=== PATIENT | female | born 1970 | race Caucasian/White ===

== ENCOUNTER 2019-08-29 11:47 | Emergency (ER) | payer BC, SELFPAY ==
--- NOTE | ~2019-08-29 | CT_ITS ---
EXAMINATION: CT abdomen pelvis w con INDICATION: Left lower quadrant pain TECHNIQUE: Computed tomographic images of the abdomen and pelvis were obtained after the administrati on of 100 cc of Omnipaque 350 intravenous contrast. The dose-length product (DLP) was 510.17 mGy-cm. Automated exposure control and iterative reconstruction technique were employed. COMPARISON: 09/09/2017 FINDINGS: Minimal dependent atelectasis is present in the lung bases. The heart size is normal. The l iver is diffusely low in attenuation when compared with the spleen, consistent with hepatic steatosis . The spleen, pancreas, gallbladder, and adrenal glands are normal. The right kidney is normal. Again seen is a stable 6 mm hypoattenuating lesion of the left kidney upper pole, likely a cyst. A retroao rtic left renal vein is noted. There is colonic diverticulosis. Wall thickening is seen in the mid si gmoid colon with surrounding edematous stranding of the perisigmoid fat. No rim-enhancing fluid colle ction or free gas are identified. No pathologically enlarged abdominal or pelvic lymph nodes are iden tified. There are no dilated loops of bowel. The appendix is normal. A tiny fat-containing umbilical hernia is noted. IMPRESSION: 1. Acute, uncomplicated sigmoid diverticulitis. Reviewed, dictated and finalized at location A. PATIONAL THERAPY CO DIRECTOR
[2019-08-29 12:50] VITALS: BP 136/76; PULSE 86; RESP 18; TEMP 36.9; O2SAT 100
[2019-08-29 13:15] LABS: Alanine Aminotransferase 43 U/L (4-35); Albumin Level 4.3 g/dL (3.5-5.1); Alkaline Phosphatase 69 U/L (38-126); Aspartate Amino Transferase 28 U/L (14-36); Bilirubin,Total 0.7 mg/dL (0.2-1.3); Blood Urea Nitrogen 8 mg/dL (7-17); Calcium 9.5 mg/dL (8.4-10.2); Carbon Dioxide 26 mmol/L (22-30); Chloride 99 mmol/L (98-107); Estimated CRCL calculation 86 ml/min; Estimated Glomerular Filt Rate > 60; Glucose 121 mg/dL (65-105); Lipase 27 U/L (23-300); Potassium 3.7 mmol/L (3.4-5.0); Sodium 139 mmol/L (137-145)
[2019-08-29 13:27] LABS: Add Urine Microscopic? YES; Appearance Urine Clear (Clear); Bacteria Urine Trace /hpf; Bilirubin Urine Negative (Negative); Blood Urine Negative (Negative); Color Urine Yellow (Yellow); Glucose Urine UA Negative (Negative); Ketones Urine Trace mg/dL (Negative); Leukocyte Esterase Ur Negative LEU/UL (Negative); Mucus Urine Heavy /lpf; Nitrate Urine Negative (Negative); Protein Urine 1+ mg/dL (Negative); Specific Grav Ur 1.023 (1.001-1.035); Squamous Epithelial Cell Urine Many /hpf (Few); Urobilinogen Urine Negative mg/dL (<2.0)
--- NOTE | 2019-08-29 15:43 | ED.ABDPAIN ---
HPI - Abdominal Pain General Chief Complaint: Abdominal Pain Stated Complaint: Lower abd pain Time Seen by Provider: 08/29/19 15:40 Source: patient Mode of arrival: ambulatory Limitations: no limitations History of Present Illness HPI narrative: A 49 y/o female presents to the ED with c/o intermittent LLQ ABD pain that started yesterday after a bowel movement. Pt states she has a Hx of Diverticulitis and notes this feels similar to episodes she's had in the past. She states she feels nauseous and constipated, but denies vomiting, diarrhea, fever, or dysuria. Pt rates her pain as an 8 out of 10 at this time and notes taking Hydrocodone last night at 1030 PM which helped to alleviate the pain, but she ran out of pain medicine. She states that she hasn't been able to eat anything since yesterday morning. Pt reports a PSHx of a caesarean section and reports NKA. MD elicited complaint: abdominal pain Pertinent past history: diverticulitis Onset (ago): day(s) (1) Pain Consistency: intermittent Location: LLQ Severity: similar to previous episodes Pain scale (0-10): 8 Relieving factors: medication (Hydrocodone) Context: confirms history of similar episodes Associated symptoms: nausea and constipation Treatments prior to arrival: other (Hydrocodone) Related Data Allergies Allergy/AdvReac Type Severity Reaction Status Date / Time No Known Allergies Allergy Verified 08/29/19 12:52 Review of Systems Review of Systems: All systems reviewed & are unremarkable except as noted in HPI and below Constitutional: Constitutional: Denies fever(s) Gastrointestinal: Gastrointestinal: Reports abdominal pain (LLQ), Reports constipation, Denies diarrhea, Reports nausea and Denies vomiting Genitourinary: Genitourinary: Denies dysuria PMFSH Past Medical History Medical History (Updated 08/29/19 @ 17:26 by J Luis Malik MD) Diverticulitis Surgical History Surgical History (Updated 08/29/19 @ 16:25 by BRAYAN Prado) History of section Social History Social History (Updated 08/29/19 @ 16:26 by BRAYAN Prado) Smoking status: Unknown if ever smoked Gender identity (if verbalized by the patient): Female Exam Const: General: healthy appearing and no acute distress Nutritional Appearance: well nourished HENMT: Mouth: Yes lip normal and Yes moist mucous membranes Eyes: Conjunctivae: conjunctivae normal Pupils: Equal, round and reactive pupils present Resp: Effort & Inspection: normal respiratory effort Auscultation: clear to auscultation bilaterally Cardio: Rate: regular rate Rhythm: regular rhythm Heart sounds: no murmurs GI: GI Palp: Yes Soft to palpation and Yes Tenderness to palpation present (GI) (LLQ) Auscultation: normal bowel sounds Back/Spine/Pelvis: Other: Full ROM Skin: General skin exam: normal color, dry skin and other (warm) Neuro: General: patient oriented x3 (alert) Speech: normal speech Extrem: General: full ROM Psych: Mental Status: mental status grossly normal Affect: normal affect Course Vital Signs Vital signs: Vital Signs Temperature 36.9 C 08/29/19 12:50 Pulse Rate 86 08/29/19 12:50 Respiratory Rate 18 08/29/19 12:50 Blood Pressure 136/76 08/29/19 12:50 Pulse Oximetry 100 08/29/19 12:50 Temperature 36.9 C 08/29/19 12:50 Pulse Rate 74 08/29/19 15:57 Respiratory Rate 18 08/29/19 15:57 Blood Pressure 121/52 L 08/29/19 15:57 Pulse Oximetry 97 08/29/19 15:57 MDM - Abdominal Pain Differential Diagnosis Differential diagnosis: Likely constipation, diverticulitis, gastroenteritis, pancreatitis and small bowel obstruction Medical Records Attestation: I reviewed the patient's medical records. Lab Data Attestation: I reviewed the patient's lab results. Result diagrams: 08/29/19 15:51 08/29/19 12:54 Labs: Lab Results 08/29/19 08/29/19 08/29/19 Range/Units 12:54 13:07 15:51 WBC 16.4
[2019-08-29 15:57] VITALS: BP 121/52; PULSE 74; RESP 18; O2SAT 97
[2019-08-29 15:57] LABS: Basophils Absolute Auto 0.1 K/mm3 (0.0-0.1); Basophils Percent Auto 0.3 % (0.2-1.2); Eosinophils Percent Auto 0.1 % (0-4.4); Hematocrit 39.2 % (37.0-47.0); Hemoglobin 13.6 g/dL (12.0-15.0); Immature Granulocyte Absolute 0.07 K/mm3 (0.00-0.031); Immature Granulocyte Percent A 0.4 % (0-0.5); Lymphocytes Absolute Auto 2.29 K/mm3 (0.9-3.2); Mean Corpuscular HGB Conc 34.7 g/dl (32-36); Mean Corpuscular Hemoglobin 32.8 pg (26-34); Mean Corpuscular Volume 94.5 fl (80-100); Mean Platelet Volume 11.3 fl (7.4-10.4); Monocytes Absolute Auto 1.3 K/mm3 (0.1-0.6); Monocytes Percent Auto 8.1 % (2.6-8.5); Neutrophils Absolute Auto 12.7 K/mm3 (1.3-6.7); Neutrophils Percent Auto 77.1 % (45.5-73.1); Platelet Count Result 297 k/mm3 (150-375); Red Blood Count 4.15 M/mm3 (4.2-5.4); Red Cell Distribution Width 12.2 % (11.5-14.5); White Blood Count 16.4 K/mm3 (4.5-10.0)
[2019-08-29] MEDS: SODIUM CHLORIDE 0.9% IV 500 ML 999 ML IV CONT (16:56)
[2019-08-29] MEDS: ONDANSETRON INJ 4 MG/2 ML VIAL IV PUSH (16:56)
[2019-08-29 17:35] VITALS: BP 110/68; PULSE 86; RESP 18; O2SAT 100
[2019-08-29 17:40] VITALS: BP 128/75; PULSE 78; RESP 16; O2SAT 100
[2019-08-29] MEDS: metroNIDAZOLE 250 MG TABLET 500 MG PO (17:43)
[2019-08-29] MEDS: CIPROFLOXACIN 500 MG TAB PO (17:43)
== END 2019-08-29 17:40 | disposition home or self-care (01) ==
PROVIDERS: Emergency Provider Emergency Medicine
DX: K57.32 Diverticulitis of large intestine without perforation or abscess without bleeding (principal)
CPT/HCPCS: 36415; 74177; 80053; 81001; 81025; 83690; 85025; 87086; 87088; 96361; 96374; 96375; 99284; A9270; J2405; J3010; J7040; Q9967

== ENCOUNTER → 2020-06-09 11:04 | Outpatient (CLI) | payer BC, SELFPAY ==
--- NOTE | ~2020-06-09 | US_ITS ---
EXAMINATION: US thyroid EXAM DATE: 06/09/2020 11:27 INDICATION: Thyroid nodule(s). TECHNIQUE: Multiple grayscale and Doppler images of the thyroid were obtained (by a technologist who performed the scan) and subsequently reviewed. Individual nodules and recommendations may be reporte d in accordance with TI-RADS system as designated by the 2017 ACR White Paper TI-RADS committee. Comp isela is made to prior examination from 05/31/2019, 04/08/2016. FINDINGS: The right thyroid lobe measures 6.2 x 2.0 x 2.1 cm, the left measuring 5.6 x 1.6 x 1.8 cm. There are scattered thyroid nodules, largest in the right thyroid lobe measuring 1.1 x 1.1 x 1.2 cm, solid (2 p oints), hypoechoic (2 points), wider than tall, smooth margin, containing peripheral calcification (2 points), category TR4 for this nodule. This is unchanged compared to prior study. The other nodules are also stable going back to 2016. IMPRESSION: Multinodular goiter, stable. Nodules are likely benign. Additional 1 year follow-up would demonstrate five-year stability. Reviewed, dictated and finalized at location B. FUR CLEANER
== END ==
PROVIDERS: Visit Provider Nurse Practitioner
DX: E04.2 Nontoxic multinodular goiter (principal)
CPT/HCPCS: 76536

== ENCOUNTER → 2020-08-07 17:17 | Outpatient (CLI) | payer BC, SELFPAY ==
--- NOTE | ~2020-08-07 | MM_ITS ---
EXAMINATION: MM screening dina BI w james HISTORY: Screening TECHNIQUE: Craniocaudal and mediolateral oblique 3-D tomosynthesis images were obtained and synthetic 2-D images were generated. CAD analysis was submitted and interpreted. COMPARISON: Comparison to multiple prior studies sequentially, with oldest reviewed study dated 04/16. BREAST PARENCHYMAL COMPOSITION: The breasts are heterogeneously dense, which may obscure small masses . FINDINGS: There is no evidence of suspicious mass, calcification, or architectural distortion to sugg est malignancy in either breast. There has been no suspicious interval change. IMPRESSION: 1. No mammographic evidence of malignancy. 2. Recommend routine screening mammography in one year. BI-RADS Category 1: Negative Reviewed, dictated and finalized at location A. NIZATIONAL PSYCHOLOGIST
== END ==
PROVIDERS: Visit Provider Nurse Practitioner
DX: Z12.31 Encounter for screening mammogram for malignant neoplasm of breast (principal)
CPT/HCPCS: 77063; 77067

== ENCOUNTER → 2021-06-04 12:25 | Outpatient (CLI) | payer BC, SELFPAY ==
--- NOTE | ~2021-06-04 | US_ITS ---
EXAMINATION: US thyroid EXAM DATE: 06/04/2021 13:07 INDICATION: Thyroid nodule. TECHNIQUE: Multiple grayscale and Doppler images of the thyroid were obtained (by a technologist who performed the scan) and subsequently reviewed. Individual nodules and recommendations may be reporte d in accordance with TI-RADS system as designated by the 2017 ACR White Paper TI-RADS committee. Comp isela is made to prior examination from 04/08/2016. FINDINGS: Right thyroid lobe measures 5.5 x 2.2 x 2.0 cm, the left measuring 5.0 x 2.0 x 1.7 cm, moderately enl arged. Mildly diffusely heterogeneous thyroid echogenicity with scattered thyroid nodules largest in the right thyroid lobe at 1.2 cm. These are unchanged, have demonstrated 5 years stability consistent with benign histology. IMPRESSION: Multinodular goiter, unchanged. Return to clinical follow-up and if additional palpable a bnormality develops a follow-up ultrasound can be considered. Reviewed, dictated and finalized at location B. NSIC ECONOMIST IMPRESSION: Multinodular goiter, unchanged. Return to clinical follow-up and if additional palpable abnormality develops a follow-up ultrasound can be conside red.
--- NOTE | ~2021-06-04 | US_ITS ---
EXAMINATION: US transvaginal EXAM DATE: 06/04/2021 13:08 INDICATION: Enlarged fibroid uterus. TECHNIQUE: Pelvic transvaginal sonogram was performed. There are multiple grayscale and Doppler imag es available for interpretation. Comparison is made to prior examination from 04/07/2016. FINDINGS: Uterus measures 10.1 x 4.0 x 5.5 cm, with probable identification of 2 cm fundal fibroid. Endometrial stripe measures 8 mm, within normal limits. There is no free pelvic fluid. Right adnexa: The ovary is not identified. There is no adnexal mass. Left adnexa: The ovary is not identified. There is no adnexal mass. IMPRESSION: 1. Probable small fundal fibroid. Reviewed, dictated and finalized at location B. K SPECULATOR
== END ==
PROVIDERS: Visit Provider Nurse Practitioner
DX: E04.2 Nontoxic multinodular goiter (principal)
CPT/HCPCS: 76536; 76830

== ENCOUNTER → 2021-09-30 16:59 | Outpatient (CLI) | payer BC, SELFPAY ==
--- NOTE | ~2021-09-30 | MM_ITS ---
EXAMINATION: MM screening dina BI w james HISTORY: Screening mammogram, family history of breast cancer in her mother. TECHNIQUE: Craniocaudal and mediolateral oblique 3-D tomosynthesis images were obtained and synthetic 2-D images were generated. CAD analysis was submitted and interpreted. COMPARISON: 08/07/2020, 05/31/2019 BREAST PARENCHYMAL COMPOSITION: There are scattered areas of fibroglandular density. FINDINGS: There is no suspicious mass, calcification, or architectural distortion to suggest malignan cy in either breast. There has been no suspicious interval change. IMPRESSION: 1. No mammographic evidence of malignancy. 2. Recommend routine screening mammography in one year. BI-RADS Category 1: Negative Reviewed, dictated and finalized at location A.
== END ==
PROVIDERS: Visit Provider Nurse Practitioner
DX: Z12.31 Encounter for screening mammogram for malignant neoplasm of breast (principal)
CPT/HCPCS: 77063; 77067

== ENCOUNTER 2022-01-26 16:20 | Emergency (ER) | payer BC, SELFPAY ==
--- NOTE | 2022-01-26 16:22 | ED.ABDPAIN ---
HPI - Abdominal Pain General Chief Complaint: Abdominal Pain Stated Complaint: low left abd pain Time Seen by Provider: 01/26/22 16:21 Source: patient Mode of arrival: ambulatory Limitations: no limitations History of Present Illness HPI narrative: Ms. Koch is a 51-year-old female patient presenting to the clinic today with complaints of left lower abdominal pain x1 day she developed some lower left abdominal pain and nausea this morning. States that she ate some strawberries a few days ago and thinks this has caused her diverticulitis to flare. She denies any fever or chills. Denies any blood in the stool. Last bowel movement was this morning and normal. She is passing gas. She denies any urinary symptoms. History of diverticulitis. Related Data Allergies Allergy/AdvReac Type Severity Reaction Status Date / Time No Known Allergies Allergy Verified 01/26/22 16:29 Review of Systems Review of Systems: Pertinent positives per HPI. Patient denies any fever, chills, rash, headache, visual changes, dizziness, cough, runny nose, sore throat, shortness of breath, chest pain, palpitations, nausea, vomiting, diarrhea, constipation, or any urinary issues. [facility] Past Medical History Medical History Diverticulitis Surgical History Surgical History History of section Family History Family History Father Family history of gout Sibling Family history of kidney disease Mother Family history of malignant neoplasm of breast in first degree relative Other Family history of Alzheimer's disease Family history of chronic obstructive pulmonary disease Family history of thyroid disease Social History Social History Smoking status: Never smoker Alcohol intake: current Gender identity (if verbalized by the patient): Female Comments At the time of my signature, I reviewed and agree with the nursing past medical, surgical, social, and family history. There is no relevant family history pertinent to the patient complaint. Exam Narrative: General: Well-developed, well nourished, in no apparent distress. Head: Normocephalic, atraumatic. Cardio: Regular rate and rhythm, s1 and s2 normal, no murmur appreciated. Resp: Clear to auscultation bilaterally, no rhonchi, rales, wheezing or rubs. Abdomen: Soft, pliable, bowel sounds present in all quadrants, tender to palpation over the mid left and lower quadrant, no organomegly, no CVAT tenderness. Course Course Emergency Course: Portions of this record may have been created with voice recognition software. Level of Care: Express Care Visit Vital Signs Vital signs: Vital signs reviewed MDM - Abdominal Pain MDM Narrative Medical decision making narrative: At the time of visit patient is resting comfortably on the exam table. Patient has tenderness to the mid and left lower quadrant. I suspect the patient has diverticulitis and will give her a course of Cipro and Flagyl for this. Supportive measures were discussed with the patient she voiced understanding of discharge instructions and agrees to the treatment plan. Discharge Plan Discharge Clinical Impression: Left lower quadrant abdominal pain, History of diverticulitis Patient Disposition: Home, Self-Care Condition: Stable Instructions: Antibiotic Form, Diverticulitis (ED), Abdominal Pain (ED) Additional Instructions: Take prescription medications only as prescribed-ciprofloxacin Flagyl. Increase fluids and stay well hydrated Tylenol/motrin for pain/fever Eat a liquid diet x2-3 days. Clear liquids x 24 hours then advance as tolerated for nausea/vomiting May return to the clinic if symptoms worsen Go to the ED if you develop a worsening in
[2022-01-26 16:28] VITALS: BP 147/66; PULSE 94; RESP 16; TEMP 36.7; O2SAT 100
[2022-01-26 16:30] VITALS: BP 147/66; PULSE 94; RESP 16; TEMP 36.7; O2SAT 100
== END 2022-01-26 16:48 | disposition home or self-care (01) ==
PROVIDERS: Emergency Provider Nurse Practitioner Family; PCP Obstetrics & Gynecology Gynecology
DX: R10.32 Left lower quadrant pain (principal); Z87.19 Personal history of other diseases of the digestive system
CPT/HCPCS: 99213; G0463

== ENCOUNTER → 2022-11-04 15:40 | Outpatient (CLI) | payer BC, SELFPAY ==
--- NOTE | ~2022-11-04 | DEXA_ITS ---
Bone Density Report Name: KARTHIK SMITH Age: 52 Sex: Female Ethnicity: White Date of : 1970 Indication: postmenopausal; screening for osteoporosis; Referring Provider: SAJI, ROBERTO Study: Bone densitometry was performed. Exam Date: November 04, 2022 Accession number: [id number] Bone Density: Region BMD T-score Z-score Classification AP Spine (L1-L4) 1.086 0.4 1.1 Normal Femoral Neck (Left) 0.947 0.9 1.6 Normal Total Hip (Left) 1.053 0.9 1.4 Normal Femoral Neck (Right) 0.902 0.5 1.2 Normal Total Hip (Right) 1.014 0.6 1.1 Normal Total Hip Mean 1.034 0.8 1.3 Normal World Health Organization criteria for BMD impression classify patients as: Normal (T-score at or above -1.0), Osteopenia (T-score between -1.0 and -2.5), or Osteoporosis (T-score at or below -2.5). 10-year Fracture Risk: FRAX not reported because: All T-scores for Spine Total, Hip Total, Femoral Neck at or above -1.0 Clinical Information Provided by Patient: Has used the following medications: Vitamin D Patient maximum height was 64.5 Menopause Age: 51 No regular weight bearing exercise Drinks caffeinated beverages Onset of menses at age 14 Number of children 2 Impression: The patient has normal bone mass. Discussion: BONE DENSITY IS ABOVE THE MINIMUM DESIRABLE LEVEL AT ALL SKELETAL SITES TESTED. This patient?s bone mineral density is above the minimum desirable level (T-score -1.0 or better) at all sites measured. The patient should follow a healthful lifestyle (good nutrition with adequate calcium and vitamin D, and appropriate weight-bearing exercise). Follow-Up: Consider repeating this study in 5 years or sooner if there is some new clinical indication. Reported by: RAMIRO on 11/04/2022 4:24:00 PM. Reviewed, dictated and finalized at location AKathy FRAZIER
--- NOTE | ~2022-11-04 | MM_ITS ---
EXAMINATION: MM screening dina BI w james HISTORY: Screening mammogram TECHNIQUE: Craniocaudal and mediolateral oblique 3-D tomosynthesis images were obtained and synthetic 2-D images were generated. CAD analysis was submitted and interpreted. COMPARISON: 09/30/2021, 08/07/2020, 05/31/2019 bilateral screening mammogram examinations BREAST PARENCHYMAL COMPOSITION: There are scattered areas of fibroglandular density. FINDINGS: Interval new grouped microcalcifications are noted in the outer mid to lower right breast. Diagnostic right mammogram and right breast ultrasound examination are recommended, with ultrasound i f required. Occasional punctate benign left breast microcalcifications. No suspicious mass or architectural distortion, skin thickening or retraction of either breast is lauren dent. IMPRESSION: 1. New right grouped microcalcifications 2. Diagnostic right mammogram is recommended, with ultrasound if required BI-RADS Category 0: Incomplete: Needs additional imaging evaluation. Reviewed, dictated and finalized at location B.
== END ==
PROVIDERS: PCP Family Medicine; Visit Provider Nurse Practitioner
DX: Z12.31 Encounter for screening mammogram for malignant neoplasm of breast (principal); Z78.0 Asymptomatic menopausal state; R92.8 Other abnormal and inconclusive findings on diagnostic imaging of breast
CPT/HCPCS: 77063; 77067; 77080

== ENCOUNTER → 2022-11-30 08:20 | Outpatient (CLI) | payer BC, SELFPAY ==
--- NOTE | ~2022-11-30 | MM_ITS ---
EXAMINATION: MM diagnostic mammo unilat RT HISTORY: Right breast calcifications on screening mammogram TECHNIQUE: Magnification views of the right breast were performed. CAD analysis was submitted and int erpreted. COMPARISON: 11/04/2022, 09/30/2021, 08/07/2020 FINDINGS: There are grouped dystrophic calcifications in the middle third of the outer breast at the 9:00 location 6 cm from the nipple. There are grouped round calcifications in the anterior third of t he outer breast at the 9:00 location 3.5 cm from the nipple. No suspicious mass, calcification, or ar chitectural distortion are identified. IMPRESSION: 1. No mammographic evidence of malignancy. 2. Recommend routine screening mammography in one year. BI-RADS Category 2: Benign finding(s). Reviewed, dictated and finalized at location A.
== END ==
PROVIDERS: PCP Family Medicine; Visit Provider Obstetrics & Gynecology Gynecology
DX: R92.8 Other abnormal and inconclusive findings on diagnostic imaging of breast (principal)
CPT/HCPCS: 77065

== ENCOUNTER → 2022-12-10 07:46 | Outpatient (CLI) | payer BC, SELFPAY ==
--- NOTE | ~2022-12-10 | US_ITS ---
EXAMINATION: US abdomen limited DATE: 12/10/2022 08:25 INDICATION: Abnormal liver function tests. TECHNIQUE: Multiple grayscale and Doppler ultrasound images of the abdomen were obtained. COMPARISON: CT abdomen and pelvis 08/29/2019 FINDINGS: The visualized portions of the head, body, and tail of the pancreas are normal. There is di ffuse hepatic steatosis. No liver surface nodularity. There is normal flow in main portal vein. The g allbladder is normal in size. No gallstones or gallbladder wall thickening. There is no sonographic M urphy sign. The common duct is normal and measures 4 mm. IMPRESSION: 1. Diffuse hepatic steatosis. Reviewed, dictated and finalized at location A.
== END ==
PROVIDERS: PCP Family Medicine; Visit Provider Family Medicine
DX: R74.8 Abnormal levels of other serum enzymes (principal); K76.0 Fatty (change of) liver, not elsewhere classified
CPT/HCPCS: 76705

== ENCOUNTER 2024-10-25 10:15 | Outpatient (CLI) | payer BC, SELFPAY ==
--- NOTE | ~2024-10-25 | MM_ITS ---
EXAMINATION: MM screening dina BI w james HISTORY: Screening TECHNIQUE: Craniocaudal and mediolateral oblique 3-D tomosynthesis images were obtained and synthetic 2-D images were generated. CAD analysis was submitted and interpreted. COMPARISON: Comparison to multiple prior studies sequentially, with oldest reviewed study dated 10/2016. BREAST PARENCHYMAL COMPOSITION: Not dense: There are scattered areas of fibroglandular density. FINDINGS: There is a developing cluster of indeterminate calcifications in the central medial aspect of the left breast, middle third, and approximately 9:00. The right breast is stable without evidence for malignancy IMPRESSION: 1. Developing indeterminate left breast calcifications. 2. Magnification views are recommended. BI-RADS Category 0: Incomplete: Needs additional imaging evaluation. Reviewed, dictated and finalized at location A.
== END 2024-10-25 10:16 | disposition home or self-care (01) ==
LOC: MICIMG 10:16
PROVIDERS: PCP Internal Medicine; Visit Provider Obstetrics & Gynecology Gynecology
DX: Z12.31 Encounter for screening mammogram for malignant neoplasm of breast (principal); R92.8 Other abnormal and inconclusive findings on diagnostic imaging of breast
CPT/HCPCS: 77063; 77067

== ENCOUNTER 2024-11-13 08:02 | Outpatient (CLI) | payer BC, SELFPAY ==
--- NOTE | ~2024-11-13 | MM_ITS ---
EXAMINATION: MM diagnostic dina LT w james HISTORY: Follow-up left breast calcifications TECHNIQUE: Additional 3-D tomosynthesis images of the left breast were performed and synthetic 2-D im ages were generated. CAD analysis was submitted and interpreted. COMPARISON: Comparison to multiple prior studies sequentially, with oldest reviewed study dated 05/17. BREAST PARENCHYMAL COMPOSITION: Dense: The breasts are heterogeneously dense, which may obscure small masses FINDINGS: Clustered calcifications in the upper inner quadrant of the left breast, middle third are m ost likely benign. At least 2 of these calcifications appear to layer on the medial lateral view.Ther e are no suspicious masses or architectural distortion. IMPRESSION: 1. Probable benign left breast calcifications. 2. Recommend 6 month follow-up diagnostic left mammogram BI-RADS category 3, probably benign findings. Reviewed, dictated and finalized at location A.
== END 2024-11-13 08:03 | disposition home or self-care (01) ==
LOC: MICIMG 08:03
PROVIDERS: PCP Internal Medicine; Visit Provider Obstetrics & Gynecology Gynecology
DX: R92.8 Other abnormal and inconclusive findings on diagnostic imaging of breast (principal)
CPT/HCPCS: 77061; 77065; G0279

== ENCOUNTER 2025-05-15 07:51 | Outpatient (CLI) | payer BC, SELFPAY ==
--- NOTE | ~2025-05-15 | MM_ITS ---
EXAMINATION: MM diagnostic dina LT w james HISTORY: Follow-up left breast microcalcifications TECHNIQUE: Additional 3-D tomosynthesis images of the left breast were performed and synthetic 2-D images were generated. CAD analysis was submitted and interpreted. COMPARISON: Comparison to multiple prior studies sequentially, with oldest reviewed study dated Comparison to multiple prior studies sequentially, with oldest reviewed study dated 08/07/2020. . BREAST PARENCHYMAL COMPOSITION: Dense: The breasts are heterogeneously dense, which may obscure small masses FINDINGS: There are no suspicious masses or architectural distortion. Clustered calcifications in the upper inner quadrants of the left breast are not significantly changed from prior examination. IMPRESSION: 1. Stable likely benign left breast calcifications upper inner quadrant, middle third. 2. Recommend 6 month follow-up diagnostic bilateral mammogram. BI-RADS category 3, probably benign findings. Reviewed, dictated and finalized at location C.
== END 2025-05-15 07:52 | disposition home or self-care (01) ==
LOC: MICIMG 07:52
PROVIDERS: PCP Internal Medicine; Visit Provider Obstetrics & Gynecology Gynecology
DX: R92.8 Other abnormal and inconclusive findings on diagnostic imaging of breast (principal)
CPT/HCPCS: 77061; 77065; G0279